=== PATIENT | male | born 1985 | race Caucasian/White ===

== ENCOUNTER 2020-07-29 11:12 | Emergency (ER) | payer OTHER ==
[~2020-07-29] VITALS: Ht 182.9 cm; Wt 90.0 kg
[2020-07-29] MEDS ORDERED: HYDROmorphone PF 1 MG/ML DISP.SYRIN IVP ONE ×3 (11:45→14:45)
[2020-07-29] MEDS ORDERED: HYDROmorphone PF 1 MG/ML DISP.SYRIN ONE (11:47)
[2020-07-29] MEDS ORDERED: LIDOCAINE (700MG/PATCH) PATCH. TD ONE (11:48)
[2020-07-29] MEDS ORDERED: ONDANSETRON PF 4 MG/2 ML VIAL. IVP ONE (12:00)
[2020-07-29] MEDS ORDERED: IV NORMAL SALINE 1,000ML 1,000 ML IV ONE (12:00)
[2020-07-29 12:18] LABS: CALCIUM 9.1 mg/dL (8.5-10.1); CREATININE 1.2 mg/dL (0.7-1.3); GFR 68.1; POTASSIUM 3.9 mmol/L (3.5-5.1)
[2020-07-29 12:19] LABS: BASO % 0 % (0-3); EOS # 0.1 x10^3/uL (0.0-0.7); EOS % 1 % (0-3); HEMATOCRIT 46.2 % (39.0-53.0); HEMOGLOBIN 15.7 g/dL (13.0-17.5); LYMPH # 1.4 x10^3/uL (1.0-4.8); LYMPH % 27 % (24-48); MEAN CORPUSCULAR HEMOGLOBIN 30 pg (25-35); MEAN CORPUSCULAR HGB CONC 34 g/dL (31-37); MEAN CORPUSCULAR VOLUME 89 fL (79-100); MONO # 0.4 x10^3/uL (0.0-1.1); MONO % 8 % (0-9); NEUT # 3.3 x10^3uL (1.8-7.7); NEUT % 64 % (31-73); PLATELET COUNT 202 x10^3/uL (140-400); RED BLOOD COUNT 5.22 x10^6/uL (4.30-5.70); RED CELL DISTRIBUTION WIDTH 12.3 % (11.5-14.5); WHITE BLOOD COUNT 5.2 x10^3/uL (4.0-11.0)
[2020-07-29 12:27] LABS: BACTERIA,URINE 0 /HPF (0-FEW); BILIRUBIN,URINE NEG (NEG); CLARITY,URINE CLEAR; COLOR,URINE YELLOW; GLUCOSE,URINE NEG (NEG); NITRITE,URINE NEG (NEG); RBC,URINE 0 /HPF (0-2); SQUAMOUS EPITHELIAL CELL,UR OCC /LPF; UROBILINOGEN,URINE 0.2 mg/dL (0.2 mg/dL); WBC,URINE 0 /HPF (0-4)
--- NOTE | 2020-07-29 13:23 | RAD ---
Exam: CT abdomen/pelvis without intravenous contrast, CT lumbar spine without contrast Indication: Back pain, L5 and S1. Comparison: None Technique: Helical CT imaging performed of the abdomen and pelvis without contrast. Sagittal and tamiko nal reformats were obtained. Multiplanar reformats of the lumbar spine were obtained. One or more of the following individualized dose reduction techniques were utilized for this examinat ion: 1. Automated exposure control 2. Adjustment of the mA and/or kV according to patient size 3. Use of iterative reconstruction technique. Findings: Abdomen and pelvis: Lower chest: Lung bases are clear. The heart is normal in size Liver: Normal. Gallbladder/Biliary Tree: Normal. Pancreas: Normal. Spleen: Normal. Adrenal Glands: Normal. Kidneys/Ureters/Bladder: Normal. No hydronephrosis or urolithiasis. Reproductive Organs: Normal. Stomach, small bowel, and colon: Stomach, small bowel, and colon are normal. No small bowel obstructi on. Appendix is normal. Vasculature: Abdominal aorta and inferior vena cava are normal. Lymph Nodes: No lymphadenopathy. Peritoneum and retroperitoneum: No free fluid or free air. Bones: No acute osseous abnormality. Lumbar spine: No acute fracture. Alignment is normal. Disc spaces are maintained. Small disc bulge an d mild posterior endplate proliferation at L5-S1. There may be mild left lateral recess narrowing at this level. Otherwise no obvious canal or foraminal narrowing. No significant facet arthrosis. Parasp inous musculature is normal. Impression: 1. No acute intra-abdominal/pelvic abnormality. 2. No acute osseous abnormality of the lumbar spine. 3. Mild degenerative disc disease at L5-S1 with small disc bulge and possible mild left lateral reces s narrowing. Electronically signed by: Rochelle Anton MD (07/29/2020 1:21 PM) [id number]
--- NOTE | 2020-07-29 14:06 | PHYS DOC ---
Past History Past Medical History: Other Additional Past Medical Histor: back pain Past Surgical History: No Surgical History Alcohol Use: Rarely General Adult EDM: Chief Complaint: BACK PAIN OR INJURY HPI: HPI: 35 yo M PMH chronic low back pain, presents to the ed with complaints of gradual, worsening, exacerbation of his low back pain such that it is never been this severe, started yesterday morning, shortly after waking up. Pain is located midline over L5-S1 and over both SI joints. Reports pain is very sharp and not radiating, but sharp in both anterior thighs " I feel like I am being stabbed." Pain does not cross the knee joint. Exacerbated with hip extension, relieved with flexion/prefers to pull his knees to his chest and states "it's easier to walk than lie flat." No relief with Motrin 800 taken at 7 AM this morning and a deep tissue massage yesterday afternoon, denies any chiropractic manipulation/hvla. Pt reports NKDA and that hydrocodone has worked in the past s/p appendectomy ( later reports he gets dizziness and very nauseous with opiods, last use was 6 years ago). No prior history of CT or MRI of the back. 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 Denies any known family history of cancer or autoimmune disorders (MS). No associated trauma. Denies any associated saddle anesthesia, urine or bowel retention or incontinence, paresthesias, weakness, sensory deficits or paralysis. No recent URI/vaccines/tick exposure. 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 Review of Systems: Review of Systems: Constitutional: Denies fever or chills Eyes: Denies change in visual acuity HENT: Denies nasal congestion or sore throat Respiratory: Denies cough or shortness of breath Cardiovascular: Denies chest pain or edema GI: Denies abdominal pain, nausea, vomiting, bloody stools or diarrhea : Denies dysuria Musculoskeletal: Denies joint pain or swelling Integument: Denies rash Neurologic: Denies headache, focal weakness or sensory changes Endocrine: Denies polyuria or polydipsia Lymphatic: Denies swollen glands Psychiatric: Denies depression or anxiety Current Medications: Current Meds: Current Medications Medications (Trade) Dose Ordered Sig/Hussain Start Time Stop Time Status Last Admin Dose Admin Hydromorphone HCl (Dilaudid) 0.5 mg 1X ONCE 07/29/20 13:00 07/29/20 13:01 DC 07/29/20 12:54 0.5 MG Lidocaine (Lidoderm) 1 patch 1X ONCE 07/29/20 11:48 07/29/20 11:49 DC 07/29/20 11:54 1 PATCH Miscellaneous (Lidoderm Patch Removal) 1 ea QHS 07/29/20 21:00 Ondansetron HCl (Zofran) 4 mg 1X ONCE 07/29/20 12:00 07/29/20 12:01 DC 07/29/20 11:53 4 MG Sodium Chloride 1,000 ml @ 1,000 mls/hr 1X ONCE 07/29/20 12:00 07/29/20 12:59 DC 07/29/20 11:57 1,000 MLS/HR Allergies: Allergies: Allergies Coded Allergies Type Severity Reaction Last Updated Verified hydrocodone Allergy Mild N/V 07/29/20 Yes Physical Exam: PE: Constitutional: in obvious pain, walking bent over, very slow movements, BP 151/63 (unsure what baseline is) HENT: Normocephalic, atraumatic, Eyes: EOMI, conjunctiva normal, no discharge. Neck: Normal range of motion, supple, Cardiovascular: S1/2 present, regular rhythm Lungs & Thorax: Speaking in full sentences, bilateral equal chest rise, no tachypnea or increased work of breathing Abdomen: soft, no tenderness, Skin: Warm, no rash, clammy skin Back: location of pain is L5/S1 midline and SI but I cannot reproduce it with palpation, no step offs, no CVA tenderness. [] Extremities: No tenderness, no cyanosis, no edema Neurologic: Alert and oriented X 3, normal motor function, normal sensory function, no focal deficits noted. [] Psychologic: Affect normal, judgement normal, mood normal. [] : pt declines rectal tone exam "I know it works" Current Patient Data: Labs: Laboratory Tests Test 07/29/20 11:31 07/29/20 11:45 Urine Collection Type Unknown Urine Color Yellow Urine Clarity Clear Urine pH 7.0 Urine Specific Blair 1.015 Urine Protein Neg (NEG-TRACE) Urine Glucose (UA) Neg mg/dL (NEG) Urine Ketones (Stick) Neg mg/dL (NEG) Urine Blood Neg (NEG) Urine Nitrite Neg (NEG) Urine Bilirubin Neg (NEG) Urine Urobilinogen Dipstick 0.2 mg/dL (0.2 mg/dL) Urine Leukocyte Esterase Neg (NEG) Urine RBC 0 /HPF (0-2) Urine WBC 0 /HPF (0-4) Urine Squamous Epithelial Cells Occ /LPF Urine Bacteria 0 /HPF (0-FEW) White Blood Count 5.2 x10^3/uL (4.0-11.0) Red Blood Count 5.22 x10^6/uL (4.30-5.70) Hemoglobin 15.7 g/dL (13.0-17.5) Hematocrit 46.2 % (39.0-53.0) Mean Corpuscular Volume 89 fL (79-100) Mean Corpuscular Hemoglobin 30 pg (25-35) Mean Corpuscular Hemoglobin Concent 34 g/dL (31-37) Red Cell Distribution Width 12.3 % (11.5-14.5) Platelet Count 202 x10^3/uL (140-400) Neutrophils (%) (Auto) 64 % (31-73) Lymphocytes (%) (Auto) 27 % (24-48) Monocytes (%) (Auto) 8 % (0-9) Eosinophils (%) (Auto) 1 % (0-3) Basophils (%) (Auto) 0 % (0-3) Neutrophils # (Auto) 3.3 x10^3uL (1.8-7.7) Lymphocytes # (Auto) 1.4 x10^3/uL (1.0-4.8) Monocytes # (Auto) 0.4 x10^3/uL (0.0-1.1) Eosinophils # (Auto) 0.1 x10^3/uL (0.0-0.7) Basophils # (Auto) 0.0 x10^3/uL (0.0-0.2) Sodium Level 139 mmol/L (136-145) Potassium Level 3.9 mmol/L (3.5-5.1) Chloride Level 103 mmol/L (98-107) Carbon Dioxide Level 30 mmol/L (21-32) Anion Gap 6 (6-14) Blood Urea Nitrogen 16 mg/dL (8-26) Creatinine 1.2 mg/dL (0.7-1.3) Estimated GFR (Cockcroft-Gault) 68.1 Glucose Level 93 mg/dL (70-99) Calcium Level 9.1 mg/dL (8.5-10.1) C-Reactive Protein 0.7 mg/L (0-3.3) Vital Signs: Vital Signs Date Time Temp Pulse Resp B/P (MAP) Pulse Ox O2 Delivery O2 Flow Rate FiO2 07/29/20 11:15 97.7 63 18 151/63 (92) 99 Room Air EKG: EKG: [] Radiology/Procedures: Radiology/Procedures: IMAGING REPORT Signed PATIENT: SHAHZAD WHITING BACCOUNT: [id number] : 1985 LOCATION: ER AGE: 35 SEX: M EXAM STATUS: REG ER ORD. PHYSICIAN: DALE SANTOS DO REASON: back pain PROCEDURE: CT ABDOMEN PELVIS WO CONTRAST Exam: CT abdomen/pelvis without intravenous contrast, CT lumbar spine without contrast Indication: Back pain, L5 and S1. Comparison: None Technique: Helical CT imaging performed of the abdomen and pelvis without contrast. Sagittal and coronal reformats were obtained. Multiplanar reformats of the lumbar spine were obtained. One or more of the following individualized dose reduction techniques were ut ilized for this examination: 1. Automated exposure control 2. Adjustment of the mA and/or kV according to patient size 3. Use of iterative reconstruction technique. Findings: Abdomen and pelvis: Lower chest: Lung bases are clear. The heart is normal in size Liver: Normal. Gallbladder/Biliary Tree: Normal. Pancreas: Normal. Spleen: Normal. Adrenal Glands: Normal. Kidneys/Ureters/Bladder: Normal. No hydronephrosis or urolithiasis. Reproductive Organs: Normal. Stomach, small bowel, and colon: Stomach, small bowel, and colon are normal. No small bowel obstruction. Appendix is normal. Vasculature: Abdominal aorta and inferior vena cava are normal. Lymph Nodes: No lymphadenopathy. Peritoneum and retroperitoneum: No free fluid or free air. Bones: No acute osseous abnormality. Lumbar spine: No acute fracture. Alignment is normal. Disc spaces are maintained. Small disc bulge and mild posterior endplate proliferation at L5-S1. There may be mild left lateral recess narrowing at this level. Otherwise no obvious canal or foraminal narrowing. No significant facet arthrosis. Paraspinous musculature is normal. Impression: 1. No acute intra-abdominal/pelvic abnormality. 2. No acute osseous abnormality of the lumbar spine. 3. Mild degenerative disc disease at L5-S1 with small disc bulge and possible mild left lateral recess narrowing. Electronically signed by: Rochelle Anton MD (07/29/2020 1:21 PM) [id number] DICTATED AND SIGNED BY: ROCHELLE ANTON MD DATE: 07/29/20 1310 CC: PCP,NO; DALE SANTOS DO ~MTH0 0 Heart Score: Risk Factors: Risk Factors: DM, Current or recent (<one month) smoker, HTN, HLP, family history of CAD, obesity. Risk Scores: Score 0 - 3: 2.5% MACE over next 6 weeks - Discharge Home Score 4 - 6: 20.3% MACE over next 6 weeks - Admit for Clinical Observation Score 7 - 10: 72.7% MACE over next 6 weeks - Early Invasive Strategies Course & Med Decision Making: Course & Med Decision Making Pertinent Labs and Imaging studies reviewed. (See chart for details) Concern for L5/S1 disc herniation with DDD sharp anterior non radiating thigh pain. No paresthesias, radiculopathy, weakness, paralysis, sensory deficits, saddle anesthesia, urinary bowel retention or incontinence or severe pain such that pt cannot ambulate. Labs unremarkable with no leukocytosis or elevated CRP. Patient is afebrile. Urinalysis contaminated but no signs of infection, RBCs or blood. CT with normal abdominal aorta, small disc herniation at L5/S1. On re-evaluation, pt reports if he doesn't move he's pain free (was 10/10 pain, now is 2/10) and has been "nodding off," wakes up because the ed is loud. Any movement brings back pain. I spoke to both patient and his over the phone and thoroughly discussed inpt vs outpt management and sxs that would require an emergent MRI. Initially did not want patient admitted for pain ctrl due to risk of covid exposure and we thoroughly discussed outpatient pain medications/dosing and risk of apnea mixing opiods and benzos which agreed not to do. told me she was already arranging pain management follow-up. I advised outpt management, pt tolerated oral medications and would be prescribed zofran odt. Very lengthy ed stay due to indecisiveness of pt with multiple requests after discussing management with his (I had been in pts room at least 6-7 times for repeat exams and to answer questions/respond to requests). Pt requested to be admitted to [facility] overnight to "get on top of the back because it's coming back." Pt made aware that if admitted for pain ctrl, he might not receive IV pain medications if tolerating oral medications. D/w Dr. Rios who recommends transfer to [place] for neurosx consultation. D/w Dr. Hobson who also agreed that MRI is not indicated but pt could be evaluated by neurosurgery/higher level of care. Pt then requested his drive him to [facility] but both Dr. Hobson and I recommended transportation by ems. Pt declined ems transfer and [facility] admission for neurosx evaluation. Pt has medical decision- making capacity and requested to be discharged home with analgesia. Pain had been well managed in the ed. Within an hour after dc papers were done, present in [place] and told RN she would file an emtala violation if pt was discharged. I educated RN about emtala, pts' thorough management/plan and his request to be discharged with outpt management. Pt was given strict ED return precautions were given for neurologic deficits, paresthesias, radiculopathy, weakness, paralysis, sensory deficits, saddle anesthesia, urinary bowel retention or incontinence or severe/worsening or new pain. Encouraged urgent outpatient follow-up with PMD and neurosurgery. Life-threatening processes were considered but are low suspicion at this time, given history, physical exam and ED workup. Pt was educated on all prescription medications and adverse effects. All patient's questions were answered and pt was stable at time of discharge. Life/limb-threatening differential includes but is not limited to, aortic dissection/aneurysm, cauda equina syndrome, transverse myelitis, spinal cord/epidural compression syndromes, discitis, spinal stenosis, epidural abscess or hematoma, osteomyelitis, disc herniation, surgical abdomen, stable or unstable fracture, renal/ureteral colic, sepsis, meningitis, musculoskeletal injury, traumatic injury, intraabdominal/retroperitoneal or pelvic bleeding. I spoken with the patient I explained the patient's condition, diagnoses and treatment plan based on the information available to me at this time. I have answered the patient's questions and addressed any concerns. The patient has a good understanding of patient's diagnosis, condition and treatment plan as can be expected at this point. Vital signs have been stable. Patient's condition is stable and appropriate for discharge from the emergency department. Patient will pursue further outpatient evaluation with primary care physician or other designated or consulting physician as outlined in the discharge instructions. The patient and/or caregivers are agreeable to this plan of care and follow-up instructions have been explained in detail. The patient and/or caregivers have received these instructions in written form and have expressed an understanding of the discharge instructions. The patient and/or caregivers are aware that any significant change of condition or worsening of symptoms should prompt immediate return to this or the closest emergency department or call to [facility] Disclaimer: Miguel Disclaimer: This electronic medical record was generated, in whole or in part, using a voice recognition dictation system. Departure Departure: Impression: Primary Impression: Lumbar disc herniation with radiculopathy Additional Impression: DDD (degenerative disc disease) Disposition: 01 ND HOME SELF CARE/HOMELESS Condition: STABLE ([facility], Dr. Orr) Referrals: PCP,NO (PCP) FOLLOW UP WITH FAMILY MEDICINE: [facility], [address] [address] [address], Counts Include [address] [facility] Instructions: Back Pain, Adult, Herniated Disk Additional Instructions: FOLLOW UP WITH NEUROSURGERY: Neurological [facility] Address: [address] [place] [address], [facility] [address] [place] [address] EMERGENCY DEPARTMENT GENERAL DISCHARGE INSTRUCTIONS Thank you for coming to [facility] (ED) today and trusting us with you care. We trust that you had a positivie experience in our Emergency Department. If you wish to speak to the department management, you may call the director at . YOUR FOLLOW UP INSTRUCTIONS ARE FOLLOWS: 1. Do you have a private Doctor? If you do not have a private doctor, please ask for a resource list of physicians or clinics that may be able to assist you with follow up care. 2. The Emergency Physician has interpreted your x-rays. The X-Ray specialist will also review them. If there is a change in the findings, you will be notified in 48 hours when at all possible. 3. A lab test or culture has been done, your results will be reviewed and you will be notified if you need a change in treatment. ADDITIONAL INSTRUCTIONS AND INFORMATION: 1. Your care today has been supervised by a physician who is specially trained in emergency care. Many problems require more than one evaluation for a complete diagnosis and treatment. We recommend that you schedule your follow up appointment as recommended to ensure complete treatment of you illness or injury. If you are unable to obtain follow up care and continue to have a problem, or if your condition worsens, we recommend that you return to the ED. 2. We are not able to safely determine your condition over the phone nor are we able to give sound medical advice over the phone. For these safety reasons, if you call for medical advice we will ask you to come to the ED for further evaluation. 3. If you have any questions regarding these discharge instructions please call the ED at [phone]. SAFETY INFORMATION: In the interest of safety, wellness, and injury prevention; we encourage you to wear your sealbelt, if you smoke; quite smoking, and we encourage family to use a protective helmet for bicycling and other sporting events that present an increased risk for head injury. IF YOUR SYMPTOMS WORSEN OR NEW SYMPTOMS DEVELOP, OR YOU HAVE CONCERNS ABOUT YOUR CONDITION; OR IF YOUR CONDITION WORSENS WHILE YOU ARE WAITING FOR YOUR FOLLOW UP APPOINTMENT; EITHER CONTACT YOUR PRIMARY CARE DOCTOR, THE PHYSICIAN WHOSE NAME AND NUMBER YOU WERE GIVEN, OR RETURN TO THE ED IMMEDIATELY. Scripts Ibuprofen (IBUPROFEN) 600 Mg Tablet 600 MG PO Q6HRS for headache, #20 TAB Prov: DALE SANTOS DO 07/29/20 Diazepam (VALIUM) 5 Mg Tablet 5 MG PO TID for pain, #16 TAB Prov: DALE SANTOS DO 07/29/20 Ondansetron Hcl (ZOFRAN) 4 Mg Tablet 1 TAB PO PRN Q6HRS PRN for NAUSEA, #20 TAB Prov: DALE SANTOS DO 07/29/20 Oxycodone HCl/Acetaminophen (Percocet 5-325 mg Tablet) 1 Each Tablet 1 TAB PO PRN QID PRN for PAIN MDD 4 Tablet(s) for 4 Days, #16 TAB 0 Refills Prov: DALE SANTOS DO 07/29/20 DALE SANTOS DO Jul 29, 2020 14:06
[2020-07-29] MEDS ORDERED: KETOROLAC 15 MG/ML VIAL. IVP ONE (14:45)
[2020-07-29] MEDS ORDERED: diazePAM 5 MG TABLET. PO ONE (17:45)
[2020-07-29] MEDS ORDERED: ACETAMINOPHEN 500 MG TABLET PO ONE (17:45)
[2020-07-29] MEDS ORDERED: DEXAMETHASONE SOD PHOS 10 MG/ML VIAL. IV ONE (18:15)
[2020-07-29] MEDS ORDERED: OXYC-325 PO (18:24)
[2020-07-29] MEDS ORDERED: ONDA4TAB7 PO (18:24)
[2020-07-29] MEDS ORDERED: DIAZ5TAB PO (18:24)
[2020-07-29] MEDS ORDERED: IBUP600T16 PO (18:24)
[2020-07-29 19:28] VITALS: BP 116/49
[2020-07-29] MEDS ORDERED: PATCH REMOVAL. MC SCH (21:00)
== END 2020-07-29 22:25 | disposition home or self-care (01) ==
LOC: EEVIPCON 11:12 → ER 11:12
DX: M51.17 Intervertebral disc disorders with radiculopathy, lumbosacral region (principal); G89.29 Other chronic pain; Z88.5 Allergy status to narcotic agent
CPT/HCPCS: 36415; 72131; 74176; 80048; 81001; 85025; 86140; 96361; 96374; 96375; 96376; 99285; J1100; J1170; J1885; J2405; J7030

== ENCOUNTER → 2020-10-04 | Outpatient (CLI) | payer OTHER ==
[~2020-10-04] MED LIST: DIAZ5TAB PO; IBUP600T16 PO; ONDA4TAB7 PO; OXYC-325 PO
--- NOTE | 2020-10-04 16:44 | RAD ---
EXAM: Lumbar spine, flexion and extension. HISTORY: Radiculopathy. COMPARISON: None. FINDINGS: Frontal, lateral, flexion and extension views of the lumbar spine are obtained. There is no listhesis. The vertebral bodies are normal in height. The disc spaces are preserved. There is no abn ormal motion between flexion and extension. IMPRESSION: No acute osseous finding. Electronically signed by: Marilyn Lewis MD (10/04/2020 4:41 PM) [id number]
== END ==
LOC: DXRAD 16:08
PROVIDERS: ATTEND Nurse Practitioner Family
DX: M54.5 Low back pain (principal)
CPT/HCPCS: 72110